=== PATIENT | male | born 2000 | race Caucasian/White ===

== ENCOUNTER 2018-11-25 08:09 | Emergency (ER) | payer OTHER ==
--- NOTE | 2018-11-25 08:44 | UC ---
Throat Pain/Nasal Ayush HPI - HPI Summary HPI Summary: The patient is a 18-year-old male that presents here with the onset this morning of sore throat and swollen glands. Denies any fever or chills. He denies any headache. He denies any myalgias. He has no chest pain or shortness of breath. He denies any nausea vomiting or diarrhea. He has no abdominal pain. - History of Current Complaint Stated Complaint: ST,BODY ACHES,NECK PAIN Time Seen by Provider: 11/25/18 08:43 Hx Obtained From: Patient Onset/Duration: Lasting Hours Severity: Mild Pain Intensity: 4 Pain Scale Used: 0-10 Numeric Cough: None Associated Signs & Symptoms: Negative: Dysphagia, FB Sensation, Drooling, Hoarseness, Sinus Discomfort, Nasal Discharge, Fever, Vomiting, Rash - Epiglottits Risk Factors Epiglottis Risk Factors: Negative - Allergies/Home Medications Allergies/Adverse Reactions: Allergies Allergy/AdvReac Type Severity Reaction Status Date / Time No Known Allergies Allergy Verified 11/25/18 08:47 Home Medications: Home Medications Lisdexamfetamine Dimesylate [Vyvanse] 30 mg PO DAILY 11/25/18 [History Confirmed 11/25/18] PMH/Surg Hx/FS Hx/Imm Hx Previously Healthy: Yes - Family History Known Family History: Negative: Cardiac Disease, Hypertension, Diabetes Review of Systems All Other Systems Reviewed And Are Negative: Yes Constitutional: Positive: Negative Skin: Positive: Negative Eyes: Positive: Negative ENT: Positive: Sore Throat Respiratory: Positive: Negative Cardiovascular: Positive: Negative Gastrointestinal: Positive: Negative Genitourinary: Positive: Negative Motor: Positive: Negative Neurovascular: Positive: Negative Musculoskeletal: Positive: Negative Neurological: Positive: Negative Psychological: Positive: Negative Physical Exam Triage Information Reviewed: Yes Appearance: Well-Appearing, No Pain Distress, Well-Nourished Vital Signs Reviewed: Yes Eyes: Positive: Conjunctiva Clear ENT: Positive: Pharyngeal erythema, Tonsillar swelling. Negative: Hearing grossly normal, Nasal congestion, Nasal drainage, Tonsillar exudate, Trismus, Muffled voice, Hoarse voice, Uvula midline Neck: Positive: Supple, Nontender Respiratory: Positive: Lungs clear, Normal breath sounds, No respiratory distress, No accessory muscle use Cardiovascular: Positive: RRR, No Murmur Musculoskeletal: Positive: ROM Intact, No Edema Neurological: Positive: Alert Psychological Exam: Normal Skin Exam: Normal Throat Pain/Nasal Course/Dx - Differential Dx/Diagnosis Provider Diagnosis: Pharyngitis Discharge ED - Sign-Out/Discharge Documenting (check all that apply): Patient Departure All imaging exams completed and their final reports reviewed: No Studies - Discharge Plan Condition: Stable Disposition: HOME Patient Education Materials: Pharyngitis (ED) Forms: *School Release, *Gen. Provider Communication Referrals: Aminata DOLAN,Jl Markham [Primary Care Provider] - If Needed Additional Instructions: your strep test was negative rest fluids tylenol or ibuprofen recheck for worsening symptoms or if not better in 4 days - Billing Disposition and Condition Condition: STABLE Disposition: Home
[2018-11-25 08:47] VITALS: BP 112/65
== END 2018-11-25 09:24 | disposition home or self-care (01) ==
LOC: UCCORT 08:09
DX: J02.9 Acute pharyngitis, unspecified (principal)
CPT/HCPCS: 87651; 99201; G0463